=== PATIENT | female | born 1980 | race Hispanic/Latino ===

== ENCOUNTER → 2025-02-25 | Outpatient (CLI) | payer OTHER ==
[~2025-02-25] MED LIST: GADOTERATE MEGLUMINE 10 MMOL/20 ML VIAL IV ONE; PANT40TA55 PO
--- NOTE | 2025-02-25 13:09 | HMCIMG ---
EXAM: MR Pelvis without Intravenous Contrast. CLINICAL HISTORY: 44-year-old female with right lower quadrant pain. TECHNIQUE: Multiplanar magnetic resonance images of the pelvis without intravenous contrast. CONTRAST: None. COMPARISON: CT Abdomen pelvis dated 02/03/2025, 21:28 pm FINDINGS: BOWEL: There is inflammation in the region of the duodenum suggesting moderate jejunitis; correlation to the CT abdomen and pelvis, there is a history of ileo-ileal intussusception; consider an upper GI study for further clarification. BLADDER: Unremarkable. No stone. REPRODUCTIVE: The uterus demonstrates small multiple tiny uterine fibroids. Small nabothian cysts are seen in the cervix. Fluid in the endometrial canal is incidentally noted. LYMPH NODES: No lymphadenopathy. BONES: No acute fracture or focal osseous lesion. SOFT TISSUES: There is a moderate amount of free fluid in the pelvis. LIMITATIONS/ARTIFACTS: Motion artifact limits evaluation. IMPRESSION: 1. Moderate jejunitis. History of ileo-ileal intussusception. Consider an upper GI study and small bowel follow through for further clarification. 2. Small multiple tiny uterine fibroids and small nabothian cysts in the cervix. 3. Moderate amount of free fluid in the pelvis. 4. Motion artifact limits evaluation. /[place]
--- NOTE | 2025-02-26 09:24 | HMCIMG ---
EXAM: MR Abdomen with and without Intravenous Contrast CLINICAL HISTORY: Patient presents with right lower quadrant abdominal pain. TECHNIQUE: Multisequence, multiplanar magnetic resonance images of the abdomen with and without intravenous contrast. CONTRAST: IV COMPARISON: 02/03/2025. FINDINGS: LOWER THORAX: No pleural effusion. LIVER: Mild hepatomegaly; right hepatic lobe measures up to 20.8 cm in craniocaudal dimension. Hepatic steatosis. GALLBLADDER AND BILE DUCTS: Gallbladder is surgically absent. No biliary ductal dilatation. PANCREAS: Unremarkable. No ductal dilation. SPLEEN: Unremarkable. ADRENALS: Unremarkable. KIDNEYS: Within normal limits. No hydronephrosis or mass. STOMACH AND BOWEL: Long segment colo-colic intussusception involving the splenic flexure and proximal transverse colon over a length of 5 cm. Associated reactive edematous mural thickening of the splenic flexure with adjacent fat stranding. LYMPH NODES: No lymphadenopathy. VASCULATURE: No abdominal aortic aneurysm. ADDITIONAL FINDINGS: Trace perihepatic free fluid. IMPRESSION: Redemonstrated [place]-colic intussusception involving the splenic flexure and proximal transverse colon, measuring approximately 5 cm, with reactive mural thickening and adjacent fat stranding. Mild hepatomegaly with steatosis. Post-cholecystectomy status. Trace perihepatic free fluid. Recommend further evaluation with contrast-enhanced CT abdomen and pelvis or diagnostic colonoscopy. /[place]
== END | disposition home or self-care (01) ==
LOC: RAH 09:28
PROVIDERS: ATTEND Internal Medicine Gastroenterology
DX: K56.1 Intussusception (principal); R16.0 Hepatomegaly, not elsewhere classified; N88.8 Other specified noninflammatory disorders of cervix uteri; K52.89 Other specified noninfective gastroenteritis and colitis; D25.9 Leiomyoma of uterus, unspecified; K76.0 Fatty (change of) liver, not elsewhere classified; R60.0 Localized edema; R10.31 Right lower quadrant pain; Z90.49 Acquired absence of other specified parts of digestive tract
CPT/HCPCS: 74183; 72197; A9575